=== PATIENT | male | born 1965 | race Caucasian/White ===

== ENCOUNTER 2019-08-21 11:07 | Emergency (ER) | payer BC ==
--- NOTE | 2019-08-21 11:41 | UC ---
Lower Extremity/Ankle HPI - HPI Summary HPI Summary: fell about 4 feet off a ladder landing on left foot-- continued swelling and lessing pain---but still had pain with weight bearing---medial ankle is the worst of the discomfort - History of Current Complaint Chief Complaint: UCLowerExtremity Stated Complaint: ANKLE INJURY Time Seen by Provider: 08/21/19 11:39 Hx Obtained From: Patient Onset/Duration: Sudden Onset, Lasting Days - 2, Still Present Pain Intensity: 4 Pain Scale Used: 0-10 Numeric Aggravating Factor(s): Standing, Ambulation Alleviating Factor(s): Rest, Elevation, Ice, OTC Meds Able to Bear Weight: No - Allergies/Home Medications Allergies/Adverse Reactions: Allergies Allergy/AdvReac Type Severity Reaction Status Date / Time No Known Allergies Allergy Verified 08/21/19 11:40 Home Medications: Home Medications NK [No Home Medications Reported] 08/21/19 [History Confirmed 08/21/19] PMH/Surg Hx/FS Hx/Imm Hx Previously Healthy: Yes - Surgical History Surgical History: None - Family History Known Family History: Positive: None - Social History Occupation: Employed Full-time Lives: With Family Alcohol Use: Rare Substance Use Type: None Smoking Status (MU): Never Smoked Tobacco Review of Systems All Other Systems Reviewed And Are Negative: Yes Constitutional: Positive: Negative Skin: Positive: Negative Eyes: Positive: Negative ENT: Positive: Negative Respiratory: Positive: Negative Cardiovascular: Positive: Negative Gastrointestinal: Positive: Negative Genitourinary: Positive: Negative Motor: Positive: Decreased ROM - left ankle Neurovascular: Positive: Negative Musculoskeletal: Positive: Arthralgia - left ankle, Edema - left foot Neurological: Positive: Negative Psychological: Positive: Negative Is Patient Immunocompromised?: No Physical Exam Triage Information Reviewed: Yes Appearance: Well-Appearing, No Pain Distress, Well-Nourished Vital Signs: Initial Vital Signs Temp 98.6 F 08/21/19 11:36 Pulse 91 08/21/19 11:36 Resp 18 08/21/19 11:36 BP 138/88 08/21/19 11:36 Pulse Ox 99 08/21/19 11:36 Vital Signs Reviewed: Yes Eye Exam: Normal Eyes: Positive: Conjunctiva Clear ENT Exam: Normal ENT: Positive: Normal ENT inspection, Hearing grossly normal, Pharynx normal. Negative: Trismus, Muffled voice, Hoarse voice Dental Exam: Normal Neck exam: Normal Neck: Positive: Supple, Nontender Respiratory Exam: Normal Respiratory: Positive: Chest non-tender, No respiratory distress, No accessory muscle use Cardiovascular Exam: Normal Cardiovascular: Positive: RRR, Pulses Normal, Brisk Capillary Refill Musculoskeletal Exam: Other Musculoskeletal: Positive: ROM Limited @ - left ankle, Edema @ - left foot Neurological Exam: Normal Neurological: Positive: Alert, Muscle Tone Normal Psychological Exam: Normal Skin Exam: Normal Diagnostics - Radiology No standard instances Radiology Interpretation Completed By: Radiologist - soft tissue swelling no evidence of fracture Lower Extremity Course/Dx - Course Course Of Treatment: cam boot, maribell, crutches, ibuprofen follow with Dr. Mendiola this week - Differential Dx/Diagnosis Provider Diagnosis: Sprain of left medial ankle joint Discharge ED - Sign-Out/Discharge Documenting (check all that apply): Patient Departure All imaging exams completed and their final reports reviewed: Yes - Discharge Plan Condition: Stable Disposition: HOME Patient Education Materials: Ibuprofen (By mouth), Ankle Sprain (ED), R.I.C.E. Treatment (ED) Referrals: Toby Mendiola MD [Medical Doctor] - 3 Days - Billing Disposition and Condition Condition: STABLE Disposition: Home - Attestation Statements Provider Attestation: I was available for consult. This patient was seen by the ANNA. The patient was not presented to , seen by or examined by sd -Mary Baron MD
== END 2019-08-21 12:40 | disposition home or self-care (01) ==
LOC: UCEAST 11:07
DX: S93.492A Sprain of other ligament of left ankle, initial encounter (principal); W11.XXXA Fall on and from ladder, initial encounter; Y92.9 Unspecified place or not applicable
CPT/HCPCS: 99202; G0463